=== PATIENT | male | born 1985 | race Caucasian/White ===

== ENCOUNTER 2018-11-08 21:01 | Emergency (ER) | payer SELFPAY ==
[~2018-11-08] VITALS: Ht 185.4 cm; Wt 73.5 kg
--- NOTE | 2018-11-08 21:45 | NUR ---
PT BIB [facility] WITH A SPIT MASK ON. PT WAS PLACED IN 4 PT RESTRAINTS TO PREVENT PT INTERFERING WITH MEDICAL CARE. PT WAS PLACED ON THE MONITOR AND CONTINUOUS PULSE OX.
[2018-11-08 22:10] LABS: BASOPHILS % (AUTO) 0.7 % (0.0-2.0); EOSINOPHILS % (AUTO) 1.9 % (0.0-6.0); HEMATOCRIT 41 % (39-51); LYMPHOCYTES # (AUTO) 1.5 /CMM (0.8-4.8); LYMPHOCYTES % (AUTO) 23.8 % (20.0-44.0); MEAN CORPUSCULAR HGB CONC 34 g/dl (31.0-36.0); MEAN CORPUSCULAR VOLUME 93 fL (80-96); MONOCYTES # (AUTO) 0.5 /CMM (0.1-1.30); MONOCYTES % (AUTO) 7.4 % (2.0-12.0); NEUTROPHILS % (AUTO) 66.2 % (43.0-81.0); PLATELET COUNT (AUTO) 320 /CMM (150-450); RED BLOOD CELL COUNT(AUTO) 4.45 MIL/uL (4.5-6.0); WHITE BLOOD COUNT (AUTO) 6.1 K/uL (4.3-11.0)
[2018-11-08 22:22] LABS: ALANINE AMINOTRANSFERASE 49 U/L (12-78); ALCOHOL, BLOOD < 3 mg/dL (0-0); ALKALINE PHOSPHATASE 71 U/L (46-116); ASPARTATE AMINOTRANSFERASE 47 U/L (15-37); BILIRUBIN,DIRECT 0.1 mg/dL (0.0-0.2); BILIRUBIN,TOTAL 0.6 mg/dL (0.2-1.0); CALCIUM, SERUM 9.1 mg/dL (8.5-10.1); CARBON DIOXIDE 27 mmol/L (21-32); CHLORIDE 101 mmol/L (98-107); CREATININE 1.1 mg/dL (0.6-1.3); GLUCOSE 91 mg/dL (74-106); POTASSIUM 3.4 mmol/L (3.5-5.1); SODIUM SERUM 140 mmol/L (136-145); TOTAL PROTEIN, SERUM 7.9 g/dL (6.4-8.2); UREA NITROGEN, BLOOD 29 mg/dL (7-18)
[2018-11-08 22:23] LABS: ACETAMINOPHEN < 2 ug/ml (10-30); SALICYLATE 1.7 mg/dL (2.8-20.0)
--- NOTE | 2018-11-08 22:30 | NUR ---
PT'S RESTRAINTS WERE REMOVED AND PT AMBULATED TO THE BATHROOM WITH A STEADY GAIT. PT IS CALM AND COOPERATIVE. URINE SAMPLE WAS OBTAINED AND SENT TO THE LAB. PT THEN AMBULATED BACK TO ER #[id number] WITH A STEADY GAIT. PT WAS PLACED ON 1 RESTRAINT ON THE LLE. PT WAS PLACED BACK ON THE MONITOR AND CONTINUOUS PULSE OX.
--- NOTE | 2018-11-08 22:38 | NUR ---
SECURITY IS AT THE BEDSIDE WANDING THE PT. PT'S BELONGINGS ARE AT THE NURSE'S STATION.
--- NOTE | 2018-11-08 22:45 | NUR ---
PT REC'D 2 CUPS OF WATER GIVEN AND TOLERATED WELL
[2018-11-08] MEDS ORDERED: IV NS 0.9% 1,000 ML BAG IV ONE (23:00)
[2018-11-08 23:04] LABS: APPEARANCE,URINE Clear (CLEAR); BILIRUBIN,URINE Negative (NEGATIVE); BLOOD, URINE Trace-intact Ery/uL (NEGATIVE); COLOR,URINE Yellow (YELLOW); KETONES,URINE Negative (NEGATIVE); LEUKOCYTE ESTERASE ,URINE Negative (NEGATIVE); NITRITE, URINE Negative (NEGATIVE); PH,URINE 6.5 (5.0-8.0); PROTEIN,URINE Negative (NEGATIVE); UGLUCOSE Negative (NEGATIVE); UROBILINOGEN,URINE 0.2 EU/dL (0.2)
[2018-11-08 23:15] LABS: BACTERIA,URINE Rare /HPF (None Seen); SQUAMOUS EPITHELIAL CELL,UR Few /HPF (None Seen); WBC,URINE NONE SEEN /HPF (0-3)
--- NOTE | 2018-11-08 23:52 | NUR ---
PT APPEARS TO BE RESTING COMFORTABLY WITH NO S/S OF PAIN OR DISTRESS. VSS.
--- NOTE | 2018-11-09 02:30 | NUR ---
PT APPEARS TO BE SLEEPING SOUNDLY WITH NO S/S OF PAIN OR DISTRESS. VSS.
--- NOTE | 2018-11-09 03:21 | NUR ---
PT APPEARS TO BE SLEEPING COMFORTABLY WITH NO S/S OF PAIN OR DISTRESS.
[2018-11-09 06:35] VITALS: BP 124/68
--- NOTE | 2018-11-09 06:35 | NUR ---
PT OK TO BE DISCHARGE PER DR CHAVEZ. Patient discharged to home in stable condition. Written and verbal after care instructions given. Patient verbalizes understanding of instruction.Patient is awake and alert to self, day, and place. pT ambulatory with a steady gait
== END 2018-11-09 06:36 | disposition home or self-care (01) ==
LOC: ER 21:05
DX: F29 Unspecified psychosis not due to a substance or known physiological condition (principal); F19.10 Other psychoactive substance abuse, uncomplicated; R79.89 Other specified abnormal findings of blood chemistry; R51 Headache; F32.9 Major depressive disorder, single episode, unspecified; F13.10 Sedative, hypnotic or anxiolytic abuse, uncomplicated; F15.10 Other stimulant abuse, uncomplicated
CPT/HCPCS: 36415; 70450-TC; 80048-TC; 80076-TC; 80305; 81000-TC; 85025-TC; G0480